=== PATIENT | male | born 1980 | race Caucasian/White ===

== ENCOUNTER 2016-09-20 11:04 | Emergency (ER) | payer OTHER ==
[~2016-09-20] VITALS: Ht 182.9 cm; Wt 81.6 kg
--- NOTE | 2016-09-20 11:29 | ED MVC/FALL/TRAUMA COMPLAINT ---
History of Present Illness General Chief Complaint: Lower Extremity Injury Stated Complaint: L KNEE/HEAD PAIN Source: patient, family Exam Limitations: no limitations Vital Signs & Intake/Output Vital Signs & Intake/Output Vital Signs Date Time Temp Pulse Resp B/P Pulse O2 O2 Flow FiO2 Ox Delivery Rate 09/20 1338 96.5 68 18 122/59 97 Room Air 09/20 1111 97.1 83 18 147/87 99 Room Air Allergies Coded Allergies: No Known Allergies (09/20/16) Reconcile Medications Ibuprofen 800 MG TABLET 1 TAB PO TID PAIN Tramadol HCl 50 MG TABLET 1 TAB PO BIDP PRN BREAKTHROUGH PAIN Triage Note: PT TO ED L LEG PAIN, STATING HE FELL DOWN "A FEW STAIRS WHEN I WAS SHOVELING YESTERDAY" AND NOW C/O L UPPER LEG PAIN. REPORTING HE ALSO HIT HIS HEAD, NO LOC, NO NECK PAIN, NO POINT TENDERNESS. Triage Nurses Notes Reviewed? yes Onset: Abrupt Duration: day(s): (1) Timing: SINGLE EPISODE YESTERDAY Severity: severe Severity Numbers: 10 Injuries/Fall Location: head, lower extremity Method of Injury: fall Modifying Factors: Worsens With: movement, other (WALKING). Associated Symptoms: BRUISING, ABRASIONS HPI: 36-year-old male with history of seizures on Depakote and Keppra presents to the ER after fall down 11 concrete stairs yesterday while shoveling snow after hitting his head. He said he slipped on the snow and lost his balance. He states that he has a little bit of headache but did not pass out. His main complaint is a has significant left femur and pelvic pain. He states he cannot bear weight. He significant other reports swelling and bruising to the left thigh as well as bruising to the right flank. Patient is not on any blood thinners or antiplatelet agents. Past History Travel History Traveled to [place] past 21 day No Medical History Any Pertinent Medical History? see below for history Neurological: EPLIEPSY EENT: NONE Cardiovascular: NONE Respiratory: NONE Gastrointestinal: NONE Hepatic: NONE Renal: NONE Musculoskeletal: NONE Psychiatric: NONE Endocrine: NONE Blood Disorders: NONE Cancer(s): NONE GERIATRICIAN/Reproductive: NONE Surgical History Surgical History: non-contributory Psychosocial History What is your primary language Mohawk Tobacco Use: Current Daily Use Daily Tobacco Use Amount/Type: => 5 Cigarettes daily ETOH Use: occasional use Illicit Drug Use: denies illicit drug use Family History Hx Contributory? No Review of Systems Review of Systems Constitutional: Denies: chills, fever. Eyes: Reports: no symptoms. Ears, Nose, Throat, Mouth: Reports: no symptoms. Respiratory: Denies: cough, short of breath, sputum production. Cardiovascular: Denies: chest pain, palpitations. Gastrointestinal/Abdominal: Reports: no symptoms. Genitourinary: Reports: no symptoms. Musculoskeletal: Reports: joint pain, muscle pain, muscle stiffness. Denies: back pain. Skin: Reports: see HPI, erythema. Neurological/Psychological: Reports: ataxia, headache. Denies: confusion. All Other Systems: Reviewed and Negative Physical Exam Physical Exam General Appearance: well developed/nourished, alert, awake Head: healing abrasions to scalp and forehead Eyes: Bilateral: normal appearance, PERRL, EOMI. Ears, Nose, Throat, Mouth: hearing grossly normal, moist mucous membrane Neck: normal inspection, supple, full range of motion Respiratory: normal breath sounds Cardiovascular: regular rate/rhythm Peripheral Pulses: 2+ radial (R), 2+ radial (L) Gastrointestinal: normal bowel sounds, soft, non-tender, no luq/ruq tenderness, no ecchymoses Back: normal inspection, normal range of motion Extremities: normal range of motion Neurologic/Psych: no motor/sensory deficits, awake, alert, oriented x 3 Skin: ABRAIONS TO LOWER EXTREMITIES, LEFT THIGH CONTUSIONS Comments: PAIN WITH WEIGHT BEARING ON LEFT LEG Core Measures ACS in differential dx? No Severe Sepsis Present: No Septic Shock Present: No Progress Differential Diagnosis: C/T/L spine injury, ICH, extremity fracture, contusion, hematoma, pelvic fracture Plan of Care: Orders Procedure Date/time Status Durable Medical Equipment 09/20 1358 Active PARTIAL THROMBOPLASTIN TIME 09/20 1128 Complete PROTHROMBIN TIME 09/20 1128 Complete COMPREHENSIVE METABOLIC PANEL 09/20 1128 Complete CBC WITHOUT DIFFERENTIAL 09/20 1128 Complete Laboratory Tests 09/20/16 1140: Anion Gap 10, Estimated GFR > 60, BUN/Creatinine Ratio 17.5, Glucose 115 H, Calcium 9.7, Total Bilirubin 0.9, AST 44, ALT 36, Alkaline Phosphatase 104, Total Protein 7.2, Albumin 4.3, Globulin 2.9, Albumin/Globulin Ratio 1.5, PT 10.9, INR 1.04, APTT 31, CBC w Diff NO MAN DIFF REQ, RBC 4.63 L, MCV 96.4 H, MCH 32.9 H, RDW 12.9, MPV 7.5, Gran % 77.1 H, Lymphocytes % 9.9 L, Monocytes % 11.1 H, Eosinophils % 1.5, Basophils % 0.4, Absolute Granulocytes 7.2 H, Absolute Lymphocytes 0.9 L, Absolute Monocytes 1.0 H, Absolute Eosinophils 0.1 , Absolute Basophils 0, PUBS MCHC 34.1 XRAY, CT, LABS ORDERED. PATIENT NOW REQUESTING PAIN MEDS. SC MORPHINE ORDERED. IMAGING NEGATIVE FOR FRACTURES. KNEE IMMOBILIZER/CRUTCHES GIVEN. INCIDENTAL CT FINDINGS DISCUSSED WITH PATIENT AND SIGNIFICANT OTHER. COPY OF CT REPORT GIVEN TO TAKE TO HIS PCP. (JANNY CHINO,SHIRA) Diagnostic Imaging: Viewed by Me: Radiology Read, CT Scan. Discussed w/RAD: Radiology Read, CT Scan. Radiology Impression: PATIENT: CLAUDIA NUGENT PRESENT AGE: 36 PATIENT ACCOUNT NO: [id number] : 79 LOCATION: [facility] ORDERING PHYSICIAN: SHIRA SOLIMAN MD SERVICE DATE: 09/20/16 EXAM TYPE: CAT - CT HEAD WO IV CONTRAST EXAMINATION: CT HEAD WITHOUT CONTRAST CLINICAL INFORMATION: Headache status-post fall; question intracranial hemorrhage. COMPARISON: None. TECHNIQUE: Contiguous axial imaging was performed from the skull base to vertex without intravenous administration of contrast. DLP: 600.71 mGy-cm FINDINGS: There is no evidence of acute intracranial hemorrhage or territorial infarction. No abnormal mass effect or midline shift is seen. Bauman to white matter differentiation is well preserved. No extra-axial fluid collections are identified. The ventricles are normal in size. There is no abnormal attenuation within the brain parenchyma. The osseous structures and soft tissues are normal. The mastoid air cells and visualized portions of the paranasal sinuses are well aerated. IMPRESSION: No acute intracranial pathology. DICTATED BY: JUANITA DIALLO MD DATE/TIME DICTATED:09/20/161217 [facility] [facility] SUPERVISOR:SARA DATE/TIME TRANSCRIBED:09/20/161217 CONFIDENTIAL, DO NOT COPY WITHOUT APPROPRIATE AUTHORIZATION. <Electronically signed in Other Vendor System> SIGNED BY: JUANITA DIALLO MD 09/20/16 1224, PATIENT: CLAUDIA NUGENT PRESENT AGE: 36 PATIENT ACCOUNT NO : [id number] : 79 LOCATION: [facility] ORDERING PHYSICIAN: SHIRA SOLIMAN MD SERVICE DATE: 09/20/16 EXAM TYPE: CAT - CT ABD & PELVIS W/O IV CONTRAS; CT LOWER EXT WO IV CONTRAST EXAMINATION: CT ABDOMEN AND PELVIS WITHOUT CONTRAST CT SCAN OF THE LEFT LOWER EXTREMITY WITHOUT CONTRAST CLINICAL INFORMATION: Left leg pain and swelling. Unable to bear weight. Fall down 10 concrete stairs. Evaluate for left femur fracture or hematoma. Evaluate for pelvic fracture or intra- abdominal bleed. COMPARISON: None. TECHNIQUE: Multidetector volumetric imaging was performed from the superior aspect of the liver through the pubic symphysis. Subsequently, multidetector volumetric imaging was performed from the left lower sacrum down to the mid thigh. Sagittal and coronal reformatted images were obtained on the technologist workstation through the abdomen, pelvis, and left lower extremity. DLP: CT scan of the abdomen and pelvis: 301.36 mGy-cm. CT scan of the left lower extremity: 2591.85 mGy-cm. FINDINGS: CT SCAN OF THE ABDOMEN AND PELVIS: LUNG BASES: The visualized lung bases are unremarkable. LIVER, GALLBLADDER, AND BILIARY TREE: The liver is normal in size, shape, and attenuation. No focal hepatic lesion on noncontrast imaging. No biliary ductal dilatation is present. The gallbladder is unremarkable with no evidence of radiopaque gallstones, gallbladder wall thickening, or obvious pericholecystic inflammatory changes. No free fluid. PANCREAS, SPLEEN, ADRENAL GLANDS: Unremarkable on noncontrast imaging. An accessory splenule is seen at the splenic hilar level. KIDNEYS AND URETERS: The kidneys are normal in size, shape, and attenuation. No hydronephrosis, hydroureter, or calculi seen. No perinephric stranding. No retroperitoneal hematoma. BLADDER: Unremarkable. GASTROINTESTINAL TRACT: The small and large bowel are unremarkable. The mid and distal appendiceal lumen is filled with dense material, possibly evolving phleboliths. Appendix otherwise appears unremarkable. No acute inflammatory change seen. ABDOMINAL WALL: No significant hernia is appreciated. LYMPH NODES, VASCULAR: Vascular structures unremarkable. No significant adenopathy. In the left para- aortic space, just below the level of the left renal hilum, an oval well- circumscribed 3.4 x 2.0 x 2.4 cm low-attenuation mass is seen with internal punctate calcification. This mass has mean attenuation values of 18.9 Hounsfield units and causes mass effect upon the left ureter, which is draped along the left lateral margin of this mass. This likely represents an incidental finding, possibly a lymphangioma or other lymphatic malformation with punctate calcification. PELVIC VISCERA: Unremarkable. OSSEOUS STRUCTURES: Unremarkable. No acute fracture or dislocation is seen. CT SCAN OF THE LEFT LOWER EXTREMITY: OSSEOUS STRUCTURES: The left femoral head is normally located within the acetabulum. No acute fracture or dislocation is seen. No abnormal periosteal reaction is noted. SOFT TISSUES: Unremarkable. No hematoma or radiopaque foreign body seen. Small amount of subcutaneous stranding over the left hip is likely related to this subtle contusion. IMPRESSION: 1. No evidence of intra-abdominal/ retroperitoneal hemorrhage. 2. No hematoma in the proximal left lower extremity. 3. No acute fracture of the proximal left femur or pelvis. 4. Incidental well- circumscribed fluid attenuation mass in the left para-aortic space. This is of uncertain significance but is likely incidental and benign, possibly representing a lymphatic malformation with punctate calcification or seroma. Would recommend follow-up MRI scan with and without contrast in 6 months for reassessment. DICTATED BY: AKIL DELEON MD DATE/TIME DICTATED:09/20/161210 [facility] [facility] SUPERVISOR:SARA DATE/TIME TRANSCRIBED:09/20/161210 CONFIDENTIAL, DO NOT COPY WITHOUT APPROPRIATE AUTHORIZATION. <Electronically signed in Other Vendor System> SIGNED BY: AKIL DELEON MD 09/20/16 1258 , PATIENT: CLAUDIA NUGENT PRESENT AGE: 36 PATIENT ACCOUNT NO: [id number] : 79 LOCATION: [facility] ORDERING PHYSICIAN: SHIRA SOLIMAN MD SERVICE DATE: 09/20/16 EXAM TYPE: RAD - XRY-ANKLE 3 OR MORE VIEWS R; [id number], RIGHT EXAMINATION: XR TIBIA AND FIBULA, RIGHT XR ANKLE, RIGHT CLINICAL INFORMATION: Status post fall down 10 stairs. Rule out fracture. COMPARISON: None TECHNIQUE: AP and lateral views of the right tibia and fibula and AP, lateral, and oblique views of the right ankle were obtained. FINDINGS: Right tibia and fibula: Sclerotic appearance of the proximal tibiofibular joint along the anterior margin of the tibial head is likely due to chronic degenerative hypertrophy in this region. Superimposed fractures possible , though less likely. Tibia and fibula are otherwise unremarkable. Enthesopathic spurring is present at the quadriceps tendon insertion on the patella. Right ankle: Small marginal osteophytes are present at the right talocrural joint. No joint space narrowing. No fractures or appreciable osteochondral lesions. Bone mineralization is normal. Soft tissues are swollen. IMPRESSION: 1. No acute fractures are identified in the right tibia and fibula and right ankle. Subtle, abnormal sclerotic appearance of the proximal tibiofibular joint is favored to be degenerative in nature. A superimposed fracture in this region would be less likely. Recommend correlation for point tenderness at the proximal tibiofibular joint at the knee. 2. Soft tissue swelling around the right ankle 3. Mild tibiotalar degenerative arthritis. DICTATED BY: JOSE VIZCARRA MD DATE/TIME DICTATED:09/20/161232 [facility] [facility] SUPERVISOR:SARA DATE/TIME TRANSCRIBED:1232 CONFIDENTIAL, DO NOT COPY WITHOUT APPROPRIATE AUTHORIZATION. < Electronically signed in Other Vendor System> SIGNED BY: JOSE VIZCARRA MD 09/20/16 1241 Departure Departure Time of Disposition: 1406 Disposition: HOME OR SELF CARE Condition: Stable Clinical Impression Primary Impression: Hematoma Secondary Impressions: Abrasion, Musculoskeletal pain of extremity Referrals: PATIENT HAS NO PRIMARY CARE DR (PCP/Family) Additional Instructions: Take ibuprofen and tramadol as directed. Ice, rest and elevate the leg. Use the knee immobilizer and crutches as directed. Please follow up the results of the CAT scan with her primary care doctor. Return as needed. Departure Forms: Customer Survey General Discharge Information Prescriptions: Current Visit Scripts Ibuprofen 1 TAB PO TID #30 TAB Tramadol HCl 1 TAB PO BIDP PRN BREAKTHROUGH PAIN #10 TAB Procedures Splinting Location: LEFT KNEE IMMOBILIZER, CRUTCHES
[2016-09-20 11:53] LABS: ABSOLUTE BASOPHIL COUNT 0 /CUMM (0.0-0.2); ABSOLUTE EOSINOPHIL COUNT 0.1 /CUMM (0.0-0.7); ABSOLUTE GRANULOCYTE CT 7.2 /CUMM (1.4-6.5); ABSOLUTE LYMPH COUNT 0.9 /CUMM (1.2-3.4); BASOPHIL % 0.4 % (0.0-2.0); EOSINOPHIL % 1.5 % (0-5); GRANULOCYTE % 77.1 % (42.2-75.2); HEMATOCRIT 44.6 % (42-52); MEAN CORPUSCULAR HGB 32.9 PG (27.0-31.0); MEAN CORPUSCULAR HGB CONC 34.1 G/DL (33.0-37.0); MEAN CORPUSCULAR VOLUME 96.4 FL (80.0-94.0); MEAN PLATELET VOLUME 7.5 FL (7.4-10.4); PLATELET COUNT 191 /CUMM (130-400); RBC DISTRIBUTION WIDTH 12.9 % (11.5-14.5); RED BLOOD CELL CT 4.63 /CUMM (4.70-6.10); WHITE BLOOD CELL COUNT 9.4 /CUMM (4.8-10.8)
[2016-09-20 12:02] LABS: PT 10.9 SEC (9.4-12.5); PTT 31 SEC (25-37)
--- NOTE | 2016-09-20 12:24 | CT SCAN REPORT ---
EXAMINATION: CT HEAD WITHOUT CONTRAST CLINICAL INFORMATION: Headache status-post fall; question intracranial hemorrhage. COMPARISON: None. TECHNIQUE: Contiguous axial imaging was performed from the skull base to vertex without intravenous administration of contrast. DLP: 600.71 mGy-cm FINDINGS: There is no evidence of acute intracranial hemorrhage or territorial infarction. No abnormal mass effect or midline shift is seen. Bauman to white matter differentiation is well preserved. No extra-axial fluid collections are identified. The ventricles are normal in size. There is no abnormal attenuation within the brain parenchyma. The osseous structures and soft tissues are normal. The mastoid air cells and visualized portions of the paranasal sinuses are well aerated. IMPRESSION: No acute intracranial pathology.
--- NOTE | 2016-09-20 12:41 | RADIOLOGY REPORT ---
EXAMINATION: XR TIBIA AND FIBULA, RIGHT XR ANKLE, RIGHT CLINICAL INFORMATION: Status post fall down 10 stairs. Rule out fracture. COMPARISON: None TECHNIQUE: AP and lateral views of the right tibia and fibula and AP, lateral, and oblique views of the right ankle were obtained. FINDINGS: Right tibia and fibula: Sclerotic appearance of the proximal tibiofibular joint along the anterior margin of the tibial head is likely due to chronic degenerative hypertrophy in this region. Superimposed fractures possible, though less likely. Tibia and fibula are otherwise unremarkable. Enthesopathic spurring is present at the quadriceps tendon insertion on the patella. Right ankle: Small marginal osteophytes are present at the right talocrural joint. No joint space narrowing. No fractures or appreciable osteochondral lesions. Bone mineralization is normal. Soft tissues are swollen. IMPRESSION: 1. No acute fractures are identified in the right tibia and fibula and right ankle. Subtle, abnormal sclerotic appearance of the proximal tibiofibular joint is favored to be degenerative in nature. A superimposed fracture in this region would be less likely. Recommend correlation for point tenderness at the proximal tibiofibular joint at the knee. 2. Soft tissue swelling around the right ankle 3. Mild tibiotalar degenerative arthritis.
--- NOTE | 2016-09-20 12:58 | CT SCAN REPORT ---
EXAMINATION: CT ABDOMEN AND PELVIS WITHOUT CONTRAST CT SCAN OF THE LEFT LOWER EXTREMITY WITHOUT CONTRAST CLINICAL INFORMATION: Left leg pain and swelling. Unable to bear weight. Fall down 10 concrete stairs. Evaluate for left femur fracture or hematoma. Evaluate for pelvic fracture or intra-abdominal bleed. COMPARISON: None. TECHNIQUE: Multidetector volumetric imaging was performed from the superior aspect of the liver through the pubic symphysis. Subsequently, multidetector volumetric imaging was performed from the left lower sacrum down to the mid thigh. Sagittal and coronal reformatted images were obtained on the technologist workstation through the abdomen, pelvis, and left lower extremity. DLP: CT scan of the abdomen and pelvis: 301.36 mGy-cm. CT scan of the left lower extremity: 2591.85 mGy-cm. FINDINGS: CT SCAN OF THE ABDOMEN AND PELVIS: LUNG BASES: The visualized lung bases are unremarkable. LIVER, GALLBLADDER, AND BILIARY TREE: The liver is normal in size, shape, and attenuation. No focal hepatic lesion on noncontrast imaging. No biliary ductal dilatation is present. The gallbladder is unremarkable with no evidence of radiopaque gallstones, gallbladder wall thickening, or obvious pericholecystic inflammatory changes. No free fluid. PANCREAS, SPLEEN, ADRENAL GLANDS: Unremarkable on noncontrast imaging. An accessory splenule is seen at the splenic hilar level. KIDNEYS AND URETERS: The kidneys are normal in size, shape, and attenuation. No hydronephrosis, hydroureter, or calculi seen. No perinephric stranding. No retroperitoneal hematoma. BLADDER: Unremarkable. GASTROINTESTINAL TRACT: The small and large bowel are unremarkable. The mid and distal appendiceal lumen is filled with dense material, possibly evolving phleboliths. Appendix otherwise appears unremarkable. No acute inflammatory change seen. ABDOMINAL WALL: No significant hernia is appreciated. LYMPH NODES, VASCULAR: Vascular structures unremarkable. No significant adenopathy. In the left para-aortic space, just below the level of the left renal hilum, an oval well-circumscribed 3.4 x 2.0 x 2.4 cm low-attenuation mass is seen with internal punctate calcification. This mass has mean attenuation values of 18.9 Hounsfield units and causes mass effect upon the left ureter, which is draped along the left lateral margin of this mass. This likely represents an incidental finding, possibly a lymphangioma or other lymphatic malformation with punctate calcification. PELVIC VISCERA: Unremarkable. OSSEOUS STRUCTURES: Unremarkable. No acute fracture or dislocation is seen. CT SCAN OF THE LEFT LOWER EXTREMITY: OSSEOUS STRUCTURES: The left femoral head is normally located within the acetabulum. No acute fracture or dislocation is seen. No abnormal periosteal reaction is noted. SOFT TISSUES: Unremarkable. No hematoma or radiopaque foreign body seen. Small amount of subcutaneous stranding over the left hip is likely related to this subtle contusion. IMPRESSION: 1. No evidence of intra-abdominal/retroperitoneal hemorrhage. 2. No hematoma in the proximal left lower extremity. 3. No acute fracture of the proximal left femur or pelvis. 4. Incidental well-circumscribed fluid attenuation mass in the left para-aortic space. This is of uncertain significance but is likely incidental and benign, possibly representing a lymphatic malformation with punctate calcification or seroma. Would recommend follow-up MRI scan with and without contrast in 6 months for reassessment.
[2016-09-20] MEDS ORDERED: TRAMADOL HCL50 M1 PO (14:07)
[2016-09-20] MEDS ORDERED: IBUPROFEN800 M1 PO (14:07)
== END 2016-09-20 14:22 ==
LOC: ERH 11:04
PROVIDERS: Emergency Medicine
DX: S70.12XA Contusion of left thigh, initial encounter (principal); S30.1XXA Contusion of abdominal wall, initial encounter; S00.81XA Abrasion of other part of head, initial encounter; S00.01XA Abrasion of scalp, initial encounter; S80.811A Abrasion, right lower leg, initial encounter; S80.812A Abrasion, left lower leg, initial encounter; M79.604 Pain in right leg
CPT/HCPCS: 73590-RT; 73610-RT; 74176; 96372